=== PATIENT | female | born 1990 | race Two or more races ===

== ENCOUNTER 2022-01-31 11:45 | Inpatient (IN) | payer OTHER ==
[~2022-01-31] VITALS: Ht 149.9 cm; Wt 3.2 kg
[2022-02-04] MEDS ORDERED: PRENATAL TABLE1 EAC3 (11:07)
== END 2022-02-07 15:54 | disposition home or self-care (01) | DRG 788 ==
LOC: LDR 02-04 09:32 → OB/GYN 02-04 09:32 → LDR 02-04 09:55 → OB/GYN 02-04 17:38 → LDR 02-13 11:45
PROVIDERS: ADMIT Obstetrics & Gynecology; ATTEND Obstetrics & Gynecology
PROC: 4A1HXCZ Monitoring of Products of Conception, Cardiac Rate, External Approach (ICD-10-PCS; 2022-02-04)
PROC: 10D00Z1 Extraction of Products of Conception, Low, Open Approach (ICD-10-PCS; principal; 2022-02-04 16:00)
DX: O36.8330 Maternal care for abnormalities of the fetal heart rate or rhythm, third trimester, not applicable or unspecified (principal); O46.8X3 Other antepartum hemorrhage, third trimester; Z3A.38 38 weeks gestation of pregnancy; Z37.0 Single live birth; Z20.822 Contact with and (suspected) exposure to COVID-19